=== PATIENT | female | born 1950 | race Caucasian/White ===

== ENCOUNTER 2016-08-10 09:53 | Emergency (ER) | payer OTHER ==
[~2016-08-10] VITALS: Ht 152.4 cm; Wt 60.0 kg
[2016-08-10 09:58] VITALS: BP 220/80; PULSE 112; RESP 15; TEMP 98.2; O2SAT 98
[2016-08-10 10:15] VITALS: BP 155/82; PULSE 103; RESP 16; O2SAT 96
--- NOTE | 2016-08-10 10:16 | PD ---
HPI Chief Complaint: Injury Time Seen by Provider: 10:13 Travel History International Travel<30 days: No Contact w/Intl Traveler<30days: No Traveled to known affect area: No History of Present Illness HPI Patient comes in for evaluation of left humerus fracture that she was diagnosed with 3 days ago at different ER. Patient states that she fell injuring her arm. Patient has an appointment with orthopedics tomorrow however was instructed to come to the Emergency department if she is continue to have pain and swelling in her left upper extremity. Patient has been taking Percocet as prescribed. Patient states she took the splint off yesterday for a few hours and again around 3:30 this morning. Patient denies any new injuries or numbness or tingling anywhere. FORMERLY [facility] Past Medical History Anxiety: Yes ?: Not Social History Alcohol Use: Yes Tobacco Use: No Substance Use: No Allergies-Medications (Allergen,Severity, Reaction): Coded Allergies: No Known Allergies (Unverified , 08/10/16) Reported Meds & Prescriptions Reported Meds & Active Scripts Active No Active Prescriptions or Reported Medications Review of Systems Except as stated in HPI: all other systems reviewed are Neg Physical Exam Narrative GENERAL: Well-developed, overly nourished, in no acute distress, and non-ill appearing. SKIN: Warm and dry. Ecchymosis noted left upper arm. HEAD: Atraumatic. Normocephalic. EYES: Pupils equal and round. EOMI. No scleral icterus. No injection or drainage. ENT: No nasal bleeding or discharge. Mucous membranes pink and moist. NECK: Trachea midline. Supple. No nuclear rigidity. CARDIOVASCULAR: Radial pulses 2+ intact bilaterally. Capillary refill less than 2 seconds. RESPIRATORY: No accessory muscle use. No respiratory distress. MUSCULOSKELETAL: No obvious deformities. No clubbing. No cyanosis. Decreased range of motion left shoulder secondary to pain. Shoulder: Sensation equal BL deltoid muscles. Pulses equal BL distal to injury. Capillary refill less than 2 seconds distal to injury and equal BL. FROM distal to injury and equal BL. Strength distal to injury equal BL. NV intact distal to injury equal BL. Flexion and extension of thumb equal BL. Equal strength and movement with abduction/adductions of BL fingers. [employer] strength equal BL. Sensation distal to injury is intact and equal bilaterally. There is minimal soft tissue swelling noted. NEUROLOGICAL: Awake and alert. No obvious cranial nerve deficits. Motor grossly within normal limits. Normal speech. PSYCHIATRIC: Appropriate mood and affect; insight and judgment normal. Data Data Last Documented VS Vital Signs Date Time Temp Pulse Resp B/P Pulse Ox O2 Delivery O2 Flow Rate FiO2 08/10/16 10:15 103 16 155/82 96 08/10/16 09:58 98.2 Orders Humerus (Min 2vws) (08/10/16 ) Splint Or Brace Apply/Monitor (08/10/16 10:36) Oxycodone-Acetamin 5-325 Mg (Percocet (08/10/16 11:00) MDM Medical Decision Making Medical Screen Exam Complete: Yes Emergency Medical Condition: Yes Differential Diagnosis Fracture, sprain, dislocation, other Narrative Course The patient sustained a fracture. The distal extremity appears neurovascularly intact, without evidence of neurovascular injury nor compartment syndrome. Tendon exam also was intact. The effected limb was splinted. The patient was discharged on pain medication along with fracture and splint care instructions and given warnings for vascular compromise. The patient is to follow up with Orthopedics. The patient agrees with plan. Patient in no obvious distress upon re-evaluation. All pertinent Radiology result(s) discussed with patient/family. Any questions/concerns in reference to patient diagnosis/condition discussed and clarified prior to patient's discharge. Reinforced sheer importance of close follow up with patient's primary physician or primary care clinic. Instructed patient to return to ED immediately, if symptoms return/worsen. Pt showed understanding of above instructions. Further instructions and recommendations were detailed in discharge paperwork. Pt ambulated without difficulty out of ED at discharge. Diagnosis Primary Impression: Fracture, humerus closed Qualified Code: S42.302D - Closed fracture of shaft of left humerus with routine healing, unspecified fracture morphology, subsequent encounter Patient Instructions: Arm Fracture in Adults (DC), General Instructions, How to Use a Sling (GEN), Proximal Humerus Fracture (ED), Splint Care (DC) Additional Instructions: Follow-up with orthopedics tomorrow as scheduled. Take all medication as previously prescribed. Apply ice to affected area 20 minutes per hour decreased pain and swelling. Sleep in a recliner approximately 45 angle to decrease pain and swelling. Return to the emergency department if symptoms get worse. Scripts No Active Prescriptions or Reported Meds Disposition: DISCHARGE HOME Condition: Stable Glenn Garcia Aug 10, 2016 10:16
--- NOTE | 2016-08-10 10:40 | RADRPT ---
EXAM DATE/TIME: 08/10/2016 10:29 [facility] COMPARISON: No previous studies available for comparison. INDICATIONS : Evaluate left humerus fracture. Patient fell 4 days ago. The left has increased swelling since havi ng a splint placed. MEDICAL HISTORY : None. SURGICAL HISTORY : None. ENCOUNTER: Initial ACUITY: 4 - 6 days PAIN SCORE: 7/10 LOCATION: Left mid humerus. FINDINGS: No fractures of the midshaft of the humerus with one half shaft width lateral displacement of the dis elba fracture fragment. No butterfly fragment seen. There is also an oblique fracture of proximal hu merus which extends across the surgical neck and has an associated bony fragment which appears to be displaced posterior. There is grossly intact alignment of the humeral head with the glenoid. CONCLUSION: Displaced fracture mid shaft humerus and nondisplaced fracture of the proximal humerus. Сергей Severino MD on August 10, 2016 at 10:38 Board Certified Radiologist. This report was verified electronically.
[2016-08-10] MEDS ORDERED: oxyCODONE/ACETAMINOPHEN 5 MG/325 MG TAB PO ONE (11:00)
== END 2016-08-10 12:39 | disposition home or self-care (01) ==
LOC: NEPB 09:53
DX: S42.302A Unspecified fracture of shaft of humerus, left arm, initial encounter for closed fracture (principal); X58.XXXA Exposure to other specified factors, initial encounter
CPT/HCPCS: 29515; 73060